=== PATIENT | male | born 1975 | race Caucasian/White ===

== ENCOUNTER 2024-06-07 16:35 | Emergency (ER) | payer OTHER, SELFPAY ==
[2024-06-07] VITALS (20 sets, daily range): BP systolic 126–145; BP diastolic 79–106; PULSE 111–132; TEMP 36.9–37.1; O2SAT 89–96; BMI 36.2
--- NOTE | 2024-06-07 16:56 | ED_ITS ---
HPI - SOB/Dyspnea General Chief Complaint: Shortness of Breath/Dyspnea Stated Complaint: COUGH, DIFF BREATHING, SHOULDER Time Seen by Provider: 06/07/24 16:55 Source: patient Mode of arrival: walk-in Limitations: no limitations History of Present Illness HPI Narrative: This patient is here complaining cough congestion. Symptoms started yesterday. He does not have myalgias arthralgias headache sore throat cough runny nose or any COVID symptoms. No nausea vomiting diarrhea. He now has yellow purulent sputum production. He smokes 2 packs of cigarettes a day for over 30 years. He has never had CT evaluation of his chest. Really does have a family doctor. 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 He has never used oxygen. He said he had asthma when he was 16 years old but does not have i nhalers or asthma medication at home. Related Data Home Medications ?Medication ?Instructions ?Recorded ?Confirmed No Known Home Medications 06/07/24 06/07/24 Allergies Allergy/AdvReac Type Severity Reaction Status Date / Time No Known Drug Allergies Allergy Verified 06/07/24 16:41 Exam Narrative Exam Narrative: Patient does have some wheezing and is slightly tachycardic patient is here with her female friend. He does not have respiratory distress. He is awake alert oriented x 3. No evidence of confusion or altered mental status. On chest examination he scattered some scattered rhonchi basilar light bilaterally with some wheezing as well. Heart sounds are tachycardic but I hear no murmur. He has no abdominal pain or discomfort. His extremities have good peripheral perfusion. Bilateral legs have no evidence of swelling or edema phlebitis or cellulitis. Skin integument is warm and dry no clamminess or diaphoresis. Constitutional Vital Signs, click to edit/add: Last Vital Signs Temp 98.4 F 06/07/24 16:42 Pulse 132 H 06/07/24 16:42 Resp 20 06/07/24 16:42 BP 145/106 H 06/07/24 16:42 Pulse Ox 90 L 06/07/24 16:53 O2 Del Method Room Air 06/07/24 16:53 Course Vital Signs Vital signs: Vital Signs Temperature 98.4 F 06/07/24 16:42 Pulse Rate 132 H 06/07/24 16:42 Respiratory Rate 20 06/07/24 16:42 Blood Pressure 145/106 H 06/07/24 16:42 Pulse Oximetry 90 L 06/07/24 16:42 Oxygen Delivery Method Room Air 06/07/24 16:42 Temperature 98.4 F 06/07/24 16:42 Pulse Rate 132 H 06/07/24 16:42 Respiratory Rate 20 06/07/24 16:42 Blood Pressure 145/106 H 06/07/24 16:42 Pulse Oximetry 90 L 06/07/24 16:53 Oxygen Delivery Method Room Air 06/07/24 16:53 MDM - SOB/Dyspnea MDM Narrative Medical decision making narrative: Because of the tobacco history we did do a CT and it is negative for any acute or obvious malignancy process. There is some bronchial thickening. His white blood cell count is substantially elevated with purulent sputum. I will treat him empirically with antibiotics. Discharge Plan Discharge Stand Alone Forms: Portal Instructions Chief Complaint: Shortness of Breath/Dyspnea Clinical Impression: Pneumonia Patient Disposition: Home, Self-Care Time of Disposition Decision: 18:56 Prescriptions / Home Meds: No Action No Known Home Medications Print Language: Ukrainian Additional Instructions: Levaquin/Z-Flaco/albuterol Referrals: Physician,Non-Staff, [Primary Care Provider] - 1 week
--- NOTE | 2024-06-07 17:01 | ECG_ITS ---
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
--- NOTE | 2024-06-07 17:01 | CT_ITS ---
The [address] [address] Patient Name: TIFFANIE GASPAR MRN: [id number] date: 1975 Sex: M Assigned Patient Location: ER Current Patient Location: ED.MAIN Accession/Order Number: [id number] Exam Date: 06/07/2024 17:20 Report Date: 06/07/2024 18:55 At the request of: BRIANA ESPITIA Procedure: CT chest w con EXAM: CT chest w con HISTORY: [id number] smoking/purulent sputum COMPARISON: None. TECHNIQUE: Enhanced helical acquisition obtained through the chest. FINDINGS: Mild paraseptal emphysema. Diffuse bilateral bronchial wall thickening consistent with inflammation. There is image degradation secondary to patient respiratory motion artifact. Minimal scarring within the anterior segment of the right upper lobe. The pleural spaces are clear. There are a few nonenlarged bilateral axillary and mediastinal lymph nodes, the largest is an aorticopulmonary window lymph node measuring 1 cm in short axis. Hepatic steatosis. CT/CT chest w con IMPRESSION: 1. Diffuse bilateral bronchial wall thickening consistent with inflammation. 2. Mild emphysema. 3. Borderline sized mediastinal and bilateral axillary lymph nodes are nonspecific, likely reactive. 4. Hepatic steatosis. Electronically authenticated by: MINOO RUIZ Date: 06/07/2024 18:55
[2024-06-07 17:08] LABS: Basophils Absolute Auto 0.1 10^3/uL (0.0-0.1); Basophils Percent Auto 0.4 % (0.2-2.0); Eosinophils Absolute Auto 0.2 10^3/uL (0.0-0.7); Hematocrit 46.8 % (42.0-54.0); Hemoglobin 15.9 g/dL (14.0-18.0); Immature Granulocytes Abs Auto 0.07 10^3/uL (0.00-0.03); Immature Granulocytes Pct Auto 0.4 % (0.0-0.5); Lymphocytes Absolute Auto 1.9 10^3/uL (1.2-3.8); Lymphocytes Percent Auto 11.2 % (20.5-60.0); Mean Corpuscular Hemoglobin 30.6 pg (25.9-34.0); Mean Platelet Volume 11.1 fL (9.5-13.5); Monocytes Absolute Auto 1.5 10^3/uL (0.3-0.8); Monocytes Percent Auto 8.5 % (1.7-12.0); Neutrophils Absolute Auto 13.5 10^3/uL (1.4-6.5); Neutrophils Percent Auto 78.5 % (43.0-75.0); Platelet Count 174 10^3/uL (150-450); Red Cell Distribution Width 12.4 % (11.0-15.0); White Blood Count 17.2 10^3/uL (4.0-11.0)
[2024-06-07 17:14] LABS: pH VBG 7.446 (7.330-7.430)
[2024-06-07 17:15] LABS: PCO2 VBG 41.4 mmHg (40.0-52.0)
[2024-06-07] MEDS: IPRATROPIUM/ALBUTEROL SULFATE 3 ML AMPUL.NEB IH (17:17)
[2024-06-07 17:39] LABS: Alanine Aminotransferase 23 U/L (16-63); Albumin Globulin Ratio 0.8; Albumin Level 3.5 g/dL (3.4-5.0); Alkaline Phosphatase 80 U/L (46-116); Anion Gap 12.2; Aspartate Amino Transferase 15 U/L (15-37); BUN Creatinine Ratio 6.2; Bilirubin Total 0.5 mg/dL (0.2-1.0); Calcium 9.3 mg/dL (8.5-10.1); Carbon Dioxide 28.9 mmol/L (21.0-32.0); Chloride 96 mmol/L (98-107); Estimated GFR (African America >60 (>=60); Estimated GFR (Non-African Ame >60 (>=60); Globulin 4.4 g/dL; Glucose 150 mg/dL (74-106); Potassium 3.1 mmol/L (3.5-5.1); Sodium 134 mmol/L (136-145); Total Protein 7.9 g/dL (6.4-8.2); Troponin I High Sensitivity 5.5 pg/mL (4.0-76.1)
[2024-06-07 17:48] LABS: Lactate/Lactic Acid 3.1 mmol/L (0.4-2.0)
[2024-06-07] MEDS: 0.9 % SODIUM CHLORIDE 1,000 ML 1000 ML IV (18:01)
[2024-06-07] MEDS: CEFTRIAXONE 1,000 MG in 0.9 % SODIUM CHLORIDE 50 ML 100 MG IV (18:01)
[2024-06-07] MEDS: ALBUTEROL SULFATE 2.5 MG/3 ML VIAL NEB IH (19:04)
--- NOTE | 2024-06-07 19:36 | PC.NURSE ---
This RN went into patient room to provide discharge education, noticed that patient spo2 was 88% while patient was sitting on bedside. I then had patient stand and walk around in room while monitoring his spo2, it dropped to 84%. I advised the patient that I wanted to inform the physician of my findings and that I did not think he should be going home, he stated that he would not stay, he would refuse no matter what, so I did not need to waste my time. I restated that I thought he should stay due to his oxygen dropping, he again stated that he is refusing, so thorough education was provided on s/s of hypoxia and when to return to the ED.
== END 2024-06-07 19:30 | disposition home or self-care (01) ==
PROVIDERS: Emergency Provider Emergency Medicine Emergency Medical Services
DX: J18.9 Pneumonia, unspecified organism (principal); F17.210 Nicotine dependence, cigarettes, uncomplicated
CPT/HCPCS: 36415; 71260; 80053; 82800; 83605; 83880; 84484; 85025; 93005; 94640; 96365; 99285; J0696; Q9967